=== PATIENT | male | born 1975 | race Caucasian/White ===

== ENCOUNTER 2019-01-05 15:23 | Emergency (ER) | payer OTHER ==
[~2019-01-05] VITALS: Ht 175.3 cm; Wt 86.7 kg
[2019-01-05 15:29] VITALS: BP 140/89
--- NOTE | 2019-01-05 15:49 | NUR ---
[employer] APPRENTICE: PT TO ROOM AT THIS TIME.
--- NOTE | 2019-01-05 16:01 | NUR ---
PT PLACED IN A SECURE ROOM AN BELONGINGS TO A SECURE LOCKER. PT REPORTS THAT HE WANTS TO BECAUSE HE CAN'T GET HOME TO [facility]. SW CALLED AWAITING ERP.
[2019-01-05 16:12] LABS: BASOPHILS # (AUTO) 0.02 x10^3/uL (0-0.1); BASOPHILS % (AUTO) 0 % (0-1); EOSINOPHILS # (AUTO) 0.29 x10^3/uL (0-0.4); EOSINOPHILS % (AUTO) 3 % (1-7); LYMPHOCYTES # (AUTO) 2.21 x10^3/uL (1-3.4); LYMPHOCYTES % (AUTO) 21 % (22-44); MD NO; MEAN CORPUSCULAR HEMOGLOBIN 30.6 pg (27.5-34.5); MEAN CORPUSCULAR HGB CONC 33.6 g/dL (33.2-36.2); MEAN CORPUSCULAR VOLUME 91.2 fL (81-97); MEAN PLATELET VOLUME 9.9 fL (7.4-10.4); MONOCYTES # (AUTO) 0.79 x10^3/uL (0.2-0.8); MONOCYTES % (AUTO) 8 % (2-9); NEUTROPHILS # (AUTO) 7.05 x10^3/uL (1.8-6.8); NEUTROPHILS % (AUTO) 68 % (42-75); PLATELET COUNT 307 x10^3/uL (130-400); RED BLOOD COUNT 5.09 x10^6/uL (4.38-5.82); RED CELL DISTRIBUTION WIDTH 13.5 % (9.4-14.8)
[2019-01-05 16:25] LABS: ALANINE AMINOTRANSFERASE 39 U/L (12-78); ALBUMIN 4.3 g/dL (3.4-5.0); ANION GAP 8 mmol/L (5-15); CALCIUM 9.2 mg/dL (8.5-10.1); CHLORIDE 104 mmol/L (98-107); CREATININE 1.04 mg/dL (0.7-1.3); SALICYLATE LEVEL 3.3 mg/dL (2.8-20.0)
[2019-01-05 16:28] LABS: ALKALINE PHOSPHATASE 50 U/L (45-117); BILIRUBIN,TOTAL 1.7 mg/dL (0.2-1.0); TOTAL PROTEIN 7.7 g/dL (6.4-8.2)
--- NOTE | 2019-01-05 16:44 | NUR ---
PT AMB TO BR WITH STEADY GAIT FOR [facility].
--- NOTE | 2019-01-05 16:55 | NUR ---
UA SENT. PT'S AOX4. RESPS EVEN AND UNLABORED.
[2019-01-05 17:20] LABS: AMPHETAMINE SCREEN, URINE Negative (Negative); BARBITURATE SCREEN, URINE Negative (Negative); BENZODIAZEPINE SCREEN, URINE Negative (Negative); CANNABINOID SCREEN, URINE Negative (Negative); COCAINE SCREEN, URINE Negative (Negative); METHADONE SCREEN, URINE Negative (Negative); OPIATE SCREEN, URINE Negative (Negative)
--- NOTE | 2019-01-05 17:29 | NUR ---
Patient given discharge instructions and they have confirmed that they understand the instructions. Patient ambulatory with steady gait.
--- NOTE | 2019-01-06 14:04 | NUR ---
Patricia Abbasi PATIENT'S MOTHER- PLEASE CALL IF PATIENT SHOWS BACK UP. FAMILY HAS BEEN SEARCHING FOR SON FOR QUITE SOME TIME.
== END 2019-01-05 17:31 | disposition home or self-care (01) ==
LOC: ED 17:25
DX: R45.851 Suicidal ideations (principal); Z72.9 Problem related to lifestyle, unspecified; Z75.9 Unspecified problem related to medical facilities and other health care; Z63.8 Other specified problems related to primary support group; Z59.0 Homelessness
CPT/HCPCS: 36415; 80053; 80307; 85025; 99284